=== PATIENT | female | born 2005 | race African-American/Black ===

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

== ENCOUNTER 2023-07-21 20:31 | Emergency (ER) | payer BC, SELFPAY ==
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
[2023-07-21 20:34] VITALS: BP 135/79; PULSE 86; RESP 18; TEMP 36.1; O2SAT 96
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
[2023-07-21] MEDS: Ibuprofen 600 MG TAB PO (21:01)
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
--- NOTE | 2023-07-24 09:34 | NUR.NOTE ---
Accessed Pt chart to obtain name of ordering Provider as well as the diagnosis.
== END 2023-07-21 21:26 | disposition home or self-care (01) ==
PROVIDERS: Emergency Provider Emergency Medicine
DX: M25.572 Pain in left ankle and joints of left foot (principal); S86.002A Unspecified injury of left Achilles tendon, initial encounter; W50.0XXA Accidental hit or strike by another person, initial encounter; Y93.66 Activity, soccer
CPT/HCPCS: 29515; 99283; 73610